=== PATIENT | female | born 1955 | race Caucasian/White ===

== ENCOUNTER 2022-08-13 15:00 | Outpatient (RCR) | payer MEDICARE, OTHER, SELFPAY | END 2022-08-17 12:06 | disposition home or self-care (01) | LOC: ANHCPREHAB 15:00 | PROVIDERS: PCP Family Medicine; Visit Provider Specialist | DX: Z95.5 Presence of coronary angioplasty implant and graft (principal) | CPT/HCPCS: 93798 ==